=== PATIENT | female | born 1955 | race Asian ===

== ENCOUNTER → 2017-02-22 | Outpatient (CLI) | payer BC ==
[~2017-02-22] MED LIST: CITA10TA4 PO; CYCL-259 PO; LEVO75TA5 PO; LISI5TAB7 PO; MULT-6 PO; PRAV20TA2 PO
== END | disposition home or self-care (01) ==
LOC: CFH 14:20
PROVIDERS: ATTEND Radiology Radiation Oncology
DX: R92.1 Mammographic calcification found on diagnostic imaging of breast (principal); Z85.3 Personal history of malignant neoplasm of breast; Z90.12 Acquired absence of left breast and nipple
CPT/HCPCS: G0204

== ENCOUNTER → 2017-03-20 | Outpatient (CLI) | payer BC | END | disposition home or self-care (01) | LOC: ROC 08:56 | PROVIDERS: ATTEND Radiology Radiation Oncology | DX: C50.912 Malignant neoplasm of unspecified site of left female breast (principal); Z79.811 Long term (current) use of aromatase inhibitors | CPT/HCPCS: 99213; G0463 ==

== ENCOUNTER → 2018-02-23 | Outpatient (CLI) | payer BC | END | disposition home or self-care (01) | LOC: CFH 12:01 | PROVIDERS: ATTEND Internal Medicine Hematology & Oncology | DX: Z08 Encounter for follow-up examination after completed treatment for malignant neoplasm (principal); Z85.3 Personal history of malignant neoplasm of breast; Z90.12 Acquired absence of left breast and nipple; Z92.3 Personal history of irradiation | CPT/HCPCS: 77066 ==

== ENCOUNTER → 2019-06-05 | Outpatient (CLI) | payer BC | END | disposition home or self-care (01) | LOC: CFH 13:53 | PROVIDERS: ATTEND Internal Medicine Hematology & Oncology | DX: M85.88 Other specified disorders of bone density and structure, other site (principal); Z78.0 Asymptomatic menopausal state | CPT/HCPCS: 77080 ==

== ENCOUNTER 2021-01-11 17:57 | Emergency (ER) | payer MEDICARE, BC ==
[~2021-01-11] VITALS: Ht 152.4 cm; Wt 58.8 kg
[~2021-01-11 17:57] MED LIST changes: -CYCL-259 PO; +CYCL10TA2 PO
--- NOTE | 2021-01-11 18:10 | NUR ---
NO ANSWER IN LOBBY AT THIS TIME.
[2021-01-11 18:23] VITALS: BP 172/103
--- NOTE | 2021-01-11 21:02 | NUR ---
button sewer note: Pt to room from lobby.
--- NOTE | 2021-01-11 21:28 | NUR ---
DR. MONTERO AT BEDSIDE.
== END 2021-01-11 23:04 | disposition home or self-care (01) ==
LOC: ED 18:27
DX: S42.422A Displaced comminuted supracondylar fracture without intercondylar fracture of left humerus, initial encounter for closed fracture (principal); W01.0XXA Fall on same level from slipping, tripping and stumbling without subsequent striking against object, initial encounter; Y93.89 Activity, other specified; Y92.009 Unspecified place in unspecified non-institutional (private) residence as the place of occurrence of the external cause; Y99.8 Other external cause status
CPT/HCPCS: 29105; 99284